=== PATIENT | female | born 2000 | race Caucasian/White ===

== ENCOUNTER 2022-01-14 07:35 | Emergency (ER) | payer MEDICAID, OTHER ==
[~2022-01-14] VITALS: Ht 170.2 cm; Wt 98.4 kg
[~2022-01-14 07:35] MED LIST: NO MEDS
[2022-01-14 07:49] VITALS: BP 109/70
--- NOTE | 2022-01-14 08:17 | NUR ---
C/O 8/10 R EAR PAIN X 1 WEEK. PT TOOK TYLENOL 20 MINS AGO.PMH: ASTHMA. DENIES N/V/D; SKIN IS PINK/WARM/DRY; AAOX4 WITH EVEN AND STEADY GAIT; LUNGS CLEAR BL; HR EVEN AND REGULAR; PT DENIES ANY FEVER, CP, SOB, OR COUGH AT THIS TIME.
--- NOTE | 2022-01-14 08:58 | NUR ---
Patient being evaluated by AMELIA mckenna [facility].
[2022-01-14] MEDS ORDERED: IBUP-2213 PO (09:11)
[2022-01-14] MEDS ORDERED: PRED20TA5 PO (09:11)
--- NOTE | 2022-01-14 09:21 | NUR ---
Patient discharged with v/s stable. Written and verbal after care instructions given and explained. Patient alert, oriented and verbalized understanding of instructions. Ambulatory with steady gait. All questions addressed prior to discharge. ID band removed. Patient advised to follow up with PMD. Rx of IBUPROFEN & PREDNISONE given. Patient educated on indication of medication including possible reaction and side effects. Opportunity to ask questions provided and answered.
[2022-01-14 09:22] VITALS: BP 115/74
== END 2022-01-14 09:21 | disposition home or self-care (01) ==
LOC: MED 07:35
DX: H92.01 Otalgia, right ear (principal); J06.9 Acute upper respiratory infection, unspecified
CPT/HCPCS: 99283